=== PATIENT | female | born 1985 | race Caucasian/White ===

== ENCOUNTER 2022-03-17 16:03 | Emergency (ER) | payer MEDICAID ==
[~2022-03-17] VITALS: Ht 157.5 cm; Wt 44.0 kg
[2022-03-17 16:24] VITALS: BP 108/68
--- NOTE | 2022-03-17 16:24 | NUR ---
HEADACHE SINCE SHE HIT HER HEAD DURING A GLF 4 DAYS AGO
[2022-03-17] MEDS ORDERED: ONDA4TAB5 PO (18:26)
--- NOTE | 2022-03-17 18:30 | NUR ---
Patient discharged to home in stable condition. Written and verbal after care instructions given. Patient verbalizes understanding of instruction.
== END 2022-03-17 18:30 | disposition home or self-care (01) ==
LOC: ER 16:07
DX: S00.83XA Contusion of other part of head, initial encounter (principal); S06.0X9A Concussion with loss of consciousness of unspecified duration, initial encounter; F41.9 Anxiety disorder, unspecified; M79.7 Fibromyalgia; Z60.2 Problems related to living alone; W01.10XA Fall on same level from slipping, tripping and stumbling with subsequent striking against unspecified object, initial encounter; Y93.89 Activity, other specified; Y92.89 Other specified places as the place of occurrence of the external cause; Y99.8 Other external cause status
CPT/HCPCS: 70450-TC